=== PATIENT | female | born 1960 | race Caucasian/White ===

== ENCOUNTER 2018-12-31 20:59 | Emergency (ER) | payer SELFPAY ==
[~2018-12-31] VITALS: Ht 167.6 cm; Wt 85.3 kg
[2018-12-31] MEDS ORDERED: IV RINGERS SOLUTION,LACTATED 1,000 ML IV SCH (21:32)
--- NOTE | 2018-12-31 21:32 | ED.ADGEN ---
Past History Past Medical History: CAD, Diabetes, Hypertension Adult General Chief Complaint Chief Complaint " My sugars are up......".. " Not feeling well.." HPI HPI Patient is a 58 year old female who presents with above hx and complaints of hyperglycemia. Pt. states she not felt well the last three days. Patient denies any specific ill Contacts. Patient denies any travel. Patient denies any change in her medications. Patient does have history of diabetes and coronary artery disease. Pt. follows with Dr. Gordon. Pt. denies hx. of immunosuppression. Review of Systems Review of Systems Constitutional: Complans of chills [] Eyes: Denies change in visual acuity, redness, or eye pain [] HENT: Denies nasal congestion or sore throat [] Respiratory: Denies cough or shortness of breath [] Cardiovascular: No additional information not addressed in HPI [] GI: Denies abdominal pain, nausea, vomiting, bloody stools or diarrhea [] : Denies dysuria or hematuria [] Musculoskeletal: Complaints of generalized myalgia and arthralgia Integument: Denies rash or skin lesions [] Neurologic: Denies headache, focal weakness or sensory changes [] Endocrine: Complaints of polyuria or polydipsia [] All other systems were reviewed and found to be within normal limits, except as documented in this note. Family History Family History Non-contributory Current Medications Current Medications Current Medications Medications (Trade) Dose Ordered Sig/Aaliyah Start Time Stop Time Status Last Admin Dose Admin Aspirin (Children'S Aspirin) 324 mg 1X ONCE 12/31/18 22:30 12/31/18 22:31 DC 12/31/18 22:47 324 MG Ceftriaxone Sodium 2 gm/ Sodium Chloride 100 ml @ 200 mls/hr 1X ONCE 01/01/19 00:30 01/01/19 01:08 DC 01/01/19 00:30 200 MLS/HR Ceftriaxone Sodium (Rocephin) 2 gm STK-MED ONCE 01/01/19 00:33 01/01/19 00:34 DC Clonidine HCl (Catapres Tts-2) 1 patch 1X ONCE 12/31/18 21:45 12/31/18 21:46 DC Clonidine HCl (Catapres) 0.2 mg 1X ONCE 12/31/18 21:45 12/31/18 21:46 DC Enoxaparin Sodium (Lovenox 80mg Syringe) 80 mg 1X ONCE 12/31/18 22:30 12/31/18 22:31 DC 12/31/18 22:48 80 MG Furosemide (Lasix) 40 mg 1X ONCE 12/31/18 22:30 12/31/18 22:31 DC 12/31/18 22:47 40 MG Insulin Human Regular (HumuLIN R VIAL) 10 unit 1X ONCE 12/31/18 22:30 12/31/18 22:31 DC 12/31/18 22:45 10 UNIT Insulin Human Regular 150 unit/ Sodium Chloride 151.5 ml @ 0 mls/hr 1X ONCE 12/31/18 22:30 12/31/18 22:31 DC 12/31/18 22:45 7 MLS/HR Lactated Ringer's 1,000 ml @ 100 mls/hr Q10H 12/31/18 21:32 01/01/19 01:08 DC Morphine Sulfate (Morphine 10mg Syringe) 10 mg STK-MED ONCE 01/01/19 00:13 01/01/19 00:14 DC Sodium Bicarbonate (Sodium Bicarb Adult 8.4% Syr) 50 meq 1X ONCE 12/31/18 22:30 12/31/18 22:31 DC 12/31/18 22:47 50 MEQ Sodium Chloride 150 ml @ As Directed STK-MED ONCE 12/31/18 22:34 12/31/18 22:35 DC See Nursing for home meds Allergies Allergies Allergies Coded Allergies Type Severity Reaction Last Updated Verified No Known Drug Allergies 12/31/18 No Physical Exam Physical Exam Constitutional: Moderate distress, non-toxic appearance. [] HENT: Normocephalic, atraumatic, bilateral external ears normal, oropharynx m oist, no oral exudates, nose normal. [] Eyes: PERRLA, EOMI, conjunctiva normal, no discharge. [] Neck: Normal range of motion, no tenderness, supple, no stridor. [] Cardiovascular:Heart rate regular rhythm, no murmur []PMI to Lt. Lungs & Thorax: Bilateral breath sounds equal at apexes on auscultation [] Abdomen: Bowel sounds normal, soft, no tenderness, no masses, no pulsatile masses. [] Obese. Skin: Warm, dry, no erythema, no rash. [] Back: No tenderness, no CVA tenderness. [] Extremities: No tenderness, no cyanosis, no clubbing, ROM intact, ankle edema. [] Neurologic: Alert and oriented X 3, moves ext. on request, distal sensory,, no focal deficits noted. [] Psychologic: Affect anxious, mood normal. [] Current Patient Data Vital Signs Vital Signs Date Time Temp Pulse Resp B/P (MAP) Pulse Ox O2 Delivery O2 Flow Rate FiO2 12/31/18 22:55 69 18 108/66 (80) 94 Room Air 12/31/18 21:33 97.7 Lab Results Laboratory Tests Test 12/31/18 21:18 12/31/18 21:20 12/31/18 22:40 12/31/18 23:42 Glucose (Fingerstick) 439 mg/dL (70-99) H 412 mg/dL (70-99) H 265 mg/dL (70-99) H White Blood Count 16.8 x10^3/uL (4.0-11.0) H Red Blood Count 4.70 x10^6/uL (3.50-5.40) Hemoglobin 13.0 g/dL (12.0-15.5) Hematocrit 39.5 % (36.0-47.0) Mean Corpuscular Volume 84 fL (79-100) Mean Corpuscular Hemoglobin 28 pg (25-35) Mean Corpuscular Hemoglobin Concent 33 g/dL (31-37) Red Cell Distribution Width 14.8 % (11.5-14.5) H Platelet Count 218 x10^3/uL (140-400) Neutrophils (%) (Auto) 77 % (31-73) H Lymphocytes (%) (Auto) 13 % (24-48) L Monocytes (%) (Auto) 10 % (0-9) H Eosinophils (%) (Auto) 0 % (0-3) Basophils (%) (Auto) 0 % (0-3) Neutrophils # (Auto) 12.8 x10^3uL (1.8-7.7) H Lymphocytes # (Auto) 2.1 x10^3/uL (1.0-4.8) Monocytes # (Auto) 1.7 x10^3/uL (0.0-1.1) H Eosinophils # (Auto) 0.0 x10^3/uL (0.0-0.7) Basophils # (Auto) 0.1 x10^3/uL (0.0-0.2) Segmented Neutrophils % 74 % (35-66) H Lymphocytes % 19 % (24-48) L Monocytes % 7 % (0-10) Toxic Granulation Present Platelet Estimate Adequate (ADEQUATE) Anisocytosis Slight Prothrombin Time 11.7 SEC (9.4-11.4) H Prothrombin Time INR 1.2 (0.9-1.1) H PTT 26 SEC (23-33) D-Dimer (Iliana) 5.16 mg/L (0.00-0.50) H Sodium Level 126 mmol/L (136-145) L Potassium Level 4.0 mmol/L (3.5-5.1) Chloride Level 91 mmol/L (98-107) L Carbon Dioxide Level 24 mmol/L (21-32) Anion Gap 11 (6-14) Blood Urea Nitrogen 17 mg/dL (7-20) Creatinine 1.0 mg/dL (0.6-1.0) Estimated GFR (Cockcroft-Gault) 56.6 Glucose Level 425 mg/dL (70-99) H Calcium Level 8.7 mg/dL (8.5-10.1) Magnesium Level 1.9 mg/dL (1.8-2.4) Total Bilirubin 1.2 mg/dL (0.2-1.0) H Direct Bilirubin 0.6 mg/dL (0.0-0.2) H Aspartate Amino Transferase (AST) 90 U/L (15-37) H Alanine Aminotransferase (ALT) 85 U/L (14-59) H Alkaline Phosphatase 329 U/L (46-116) H Creatine Kinase 45 U/L (26-192) Troponin I Quantitative 0.983 ng/mL (0-0.055) H VD-Mby-L-Type Natriuretic Peptide 8317 pg/mL (0-124) H Total Protein 6.4 g/dL (6.4-8.2) Albumin 2.2 g/dL (3.4-5.0) L Lipase 93 U/L (73-393) Blood pH 7.37 (7.35-7.45) Blood Gas PCO2 34 mmHg (35-45) L Blood Gas PO2 61 mmHg (80-100) L Blood Gas HCO3 20 mmol/L (22-26) L Arterial Bld O2 Saturation (Calc) 91 % (92-99) L FiO2 21 % Test 01/01/19 00:21 01/01/19 01:00 Glucose (Fingerstick) 190 mg/dL (70-99) H Lactic Acid Level 6.9 mmol/L (0.4-2.0) *H EKG EKG My interpretation EKG shows low volumes. Sinus rate of 75. Right axis. Some nonspecific systemic T-wave changes in anterior septal leads. No findings of acute STEMI of contralateral changes[] Radiology/Procedures Radiology/Procedures My interpretation chest x-ray shows increased cephalization, linear atelectasis in bases.. cardiomegaly[] Course & Med Decision Making Course & Med Decision Making Pertinent Labs and Imaging studies reviewed. (See chart for details) Discussed presentation, testing and treatment plan with Dr. Chance and cardiology online content coordinator. Patient be transferred to [facility] for further evaluation and treatment [] Final Impression Final Impression 1. Hyperglycemia 439 2. Elevated Trop. 0.983 3. Leukocytosis 16.8 4. Elevated bilirubin 1.2, AST 90, ALT 85, alkaline phosphatase 329 5. CHF BNP 8317 6. Malnutrition albumin 2.2 7. SIRS Elevated Lactic Acid 6.9 8. Elevated D-dimer 5.16. Dragon Disclaimer Dragon Disclaimer This electronic medical record was generated, in whole or in part, using a voice recognition dictation system. Discharge Summary Visit Information Final Diagnosis Problems Medical Problems: (1) Hyperglycemia Status: Acute (2) Myocardial disorder Status: Acute (3) SIRS (systemic inflammatory response syndrome) Status: Acute Brief Hospital Course Allergies Allergies Coded Allergies Type Severity Reaction Last Updated Verified No Known Drug Allergies 12/31/18 No Vital Signs Vital Signs Date Time Temp Pulse Resp B/P (MAP) Pulse Ox O2 Delivery O2 Flow Rate FiO2 12/31/18 22:55 69 18 108/66 (80) 94 Room Air 12/31/18 21:33 97.7 Lab Results Laboratory Tests Test 12/31/18 21:18 12/31/18 21:20 12/31/18 22:40 12/31/18 23:42 Glucose (Fingerstick) 439 mg/dL (70-99) 412 mg/dL (70-99) 265 mg/dL (70-99) White Blood Count 16.8 x10^3/uL (4.0-11.0) Red Blood Count 4.70 x10^6/uL (3.50-5.40) Hemoglobin 13.0 g/dL (12.0-15.5) Hematocrit 39.5 % (36.0-47.0) Mean Corpuscular Volume 84 fL (79-100) Mean Corpuscular Hemoglobin 28 pg (25-35) Mean Corpuscular Hemoglobin Concent 33 g/dL (31-37) Red Cell Distribution Width 14.8 % (11.5-14.5) Platelet Count 218 x10^3/uL (140-400) Neutrophils (%) (Auto) 77 % (31-73) Lymphocytes (%) (Auto) 13 % (24-48) Monocytes (%) (Auto) 10 % (0-9) Eosinophils (%) (Auto) 0 % (0-3) Basophils (%) (Auto) 0 % (0-3) Neutrophils # (Auto) 12.8 x10^3uL (1.8-7.7) Lymphocytes # (Auto) 2.1 x10^3/uL (1.0-4.8) Monocytes # (Auto) 1.7 x10^3/uL (0.0-1.1) Eosinophils # (Auto) 0.0 x10^3/uL (0.0-0.7) Basophils # (Auto) 0.1 x10^3/uL (0.0-0.2) Segmented Neutrophils % 74 % (35-66) Lymphocytes % 19 % (24-48) Monocytes % 7 % (0-10) Toxic Granulation Present Platelet Estimate Adequate (ADEQUATE) Anisocytosis Slight Prothrombin Time 11.7 SEC (9.4-11.4) Prothromb Time International Ratio 1.2 (0.9-1.1) Activated Partial Thromboplast Time 26 SEC (23-33) D-Dimer (Iliana) 5.16 mg/L (0.00-0.50) Sodium Level 126 mmol/L (136-145) Potassium Level 4.0 mmol/L (3.5-5.1) Chloride Level 91 mmol/L (98-107) Carbon Dioxide Level 24 mmol/L (21-32) Anion Gap 11 (6-14) Blood Urea Nitrogen 17 mg/dL (7-20) Creatinine 1.0 mg/dL (0.6-1.0) Estimated GFR (Cockcroft-Gault) 56.6 Glucose Level 425 mg/dL (70-99) Calcium Level 8.7 mg/dL (8.5-10.1) Magnesium Level 1.9 mg/dL (1.8-2.4) Total Bilirubin 1.2 mg/dL (0.2-1.0) Direct Bilirubin 0.6 mg/dL (0.0-0.2) Aspartate Amino Transf (AST/SGOT) 90 U/L (15-37) Alanine Aminotransferase (ALT/SGPT) 85 U/L (14-59) Alkaline Phosphatase 329 U/L (46-116) Creatine Kinase 45 U/L (26-192) Troponin I Quantitative 0.983 ng/mL (0-0.055) KQ-Nbl-B-Type Natriuretic Peptide 8317 pg/mL (0-124) Total Protein 6.4 g/dL (6.4-8.2) Albumin 2.2 g/dL (3.4-5.0) Lipase 93 U/L (73-393) Blood Gas pH 7.37 (7.35-7.45) Blood Gas PCO2 34 mmHg (35-45) Blood Gas PO2 61 mmHg (80-100) Blood Gas HCO3 20 mmol/L (22-26) Arterial Bld O2 Saturation (Calc) 91 % (92-99) FiO2 21 % Test 01/01/19 00:21 01/01/19 01:00 Glucose (Fingerstick) 190 mg/dL (70-99) Lactic Acid Level 6.9 mmol/L (0.4-2.0) Brief Hospital Course Ms. Holloway is a 58 old female who presented with Elev. Trop. D.Dimer, Leukocytosis, and Lactic Acid. Transfer [facility]- Dr. Barboza Discharge Information Disposition/Orders: D/C to Another Facility Dischare Medications Current Medications Lactated Ringer's 1,000 ml @ 100 mls/hr Q10H IV ; Start 12/31/18 at 21:32; Stop 01/01/19 at 01:08; Status DC Clonidine HCl (Catapres Tts-2) 1 patch 1X ONCE TD ; Start 12/31/18 at 21:45; Stop 12/31/18 at 21:46; Status DC Clonidine HCl (Catapres) 0.2 mg 1X ONCE PO ; Start 12/31/18 at 21:45; Stop 12/31/18 at 21:46; Status DC Furosemide (Lasix) 40 mg 1X ONCE IVP Last administered on 12/31/18at 22:47; Admin Dose 40 MG; Start 12/31/18 at 22:30; Stop 12/31/18 at 22:31; Status DC Aspirin (Children'S Aspirin) 324 mg 1X ONCE PO Last administered on 12/31/18at 22:47; Admin Dose 324 MG; Start 12/31/18 at 22:30; Stop 12/31/18 at 22:31; Status DC Enoxaparin Sodium (Lovenox 80mg Syringe) 80 mg 1X ONCE SQ Last administered on 12/31/18at 22:48; Admin Dose 80 MG; Start 12/31/18 at 22:30; Stop 12/31/18 at 22:31; Status DC Sodium Bicarbonate (Sodium Bicarb Adult 8.4% Syr) 50 meq 1X ONCE IV Last administered on 12/31/18at 22:47; Admin Dose 50 MEQ; Start 12/31/18 at 22:30; Stop 12/31/18 at 22:31; Status DC Insulin Human Regular (HumuLIN R VIAL) 10 unit 1X ONCE IV Last administered on 12/31/18at 22:45; Admin Dose 10 UNIT; Start 12/31/18 at 22:30; Stop 12/31/18 at 22:31; Status DC Insulin Human Regular 150 unit/ Sodium Chloride 151.5 ml @ 0 mls/hr 1X ONCE IV Last administered on 12/31/18at 22:45; Admin Dose 7 MLS/HR; Start 12/31/18 at 22:30; Stop 12/31/18 at 22:31; Status DC Sodium Chloride 150 ml @ As Directed STK-MED ONCE .ROUTE ; Start 12/31/18 at 22:34; Stop 12/31/18 at 22:35; Status DC Morphine Sulfate (Morphine 10mg Syringe) 10 mg 1X ONCE SQ Last administered on 01/01/19at 00:15; Admin Dose 10 MG; Start 01/01/19 at 00:15; Stop 01/01/19 at 01:08; Status DC Morphine Sulfate (Morphine 10mg Syringe) 10 mg STK-MED ONCE .ROUTE ; Start 01/01/19 at 00:13; Stop 01/01/19 at 00:14; Status DC Ceftriaxone Sodium 2 gm/ Sodium Chloride 100 ml @ 200 mls/hr 1X ONCE IV Last administered on 01/01/19at 00:30; Admin Dose 200 MLS/HR; Start 01/01/19 at 00:30; Stop 01/01/19 at 01:08; Status DC Ceftriaxone Sodium (Rocephin) 2 gm STK-MED ONCE IV ; Start 01/01/19 at 00:33; Stop 01/01/19 at 00:34; Status DC Dragon Disclaimer This chart was dictated in whole or in part using Voice Recognition software in a busy, high-work load, and often noisy Emergency Department environment. It may contain unintended and wholly unrecognized errors or omissions. BELINDA TRIVEDI MD Dec 31, 2018 21:32
[2018-12-31] MEDS ORDERED: cloNIDine TTS-2 1 PATCH PATCH TD ONE (21:45)
[2018-12-31] MEDS ORDERED: cloNIDine HCL 0.1 MG TABLET PO ONE (21:45)
[2018-12-31 21:46] LABS: BASO # 0.1 x10^3/uL (0.0-0.2); BASO % 0 % (0-3); EOS % 0 % (0-3); HEMATOCRIT 39.5 % (36.0-47.0); LYMPH # 2.1 x10^3/uL (1.0-4.8); LYMPH % 13 % (24-48); MEAN CORPUSCULAR HEMOGLOBIN 28 pg (25-35); MEAN CORPUSCULAR HGB CONC 33 g/dL (31-37); MEAN CORPUSCULAR VOLUME 84 fL (79-100); MONO # 1.7 x10^3/uL (0.0-1.1); MONO % 10 % (0-9); NEUT # 12.8 x10^3uL (1.8-7.7); NEUT % 77 % (31-73); PLATELET COUNT 218 x10^3/uL (140-400); RED CELL DISTRIBUTION WIDTH 14.8 % (11.5-14.5); WHITE BLOOD COUNT 16.8 x10^3/uL (4.0-11.0)
[2018-12-31 22:00] LABS: ALBUMIN 2.2 g/dL (3.4-5.0); CALCIUM 8.7 mg/dL (8.5-10.1); DIRECT BILIRUBIN 0.6 mg/dL (0.0-0.2); GFR 56.6; MAGNESIUM 1.9 mg/dL (1.8-2.4); TOTAL BILIRUBIN 1.2 mg/dL (0.2-1.0); TOTAL PROTEIN 6.4 g/dL (6.4-8.2)
[2018-12-31] MEDS ORDERED: INSULIN REGULAR VIAL 150 UNIT in 0.9 % SODIUM CHLORIDE 150ML 150 ML IV ONE (22:30)
[2018-12-31] MEDS ORDERED: ENOXAPARIN ** NOTE DOSE ** SYRINGE SQ ONE (22:30)
[2018-12-31] MEDS ORDERED: ASPIRIN 81 MG TAB.CHEW PO ONE (22:30)
[2018-12-31] MEDS ORDERED: FUROSEMIDE 40 MG/4 ML VIAL IVP ONE (22:30)
[2018-12-31] MEDS ORDERED: SODIUM BICARB ADULT 8.4% 50 MEQ/50 ML DISP.SYRIN. IV ONE (22:30)
[2018-12-31] MEDS ORDERED: INSULIN REGULAR 100 UNIT/ML 3ML VIAL. IV ONE (22:30)
[2018-12-31 22:31] LABS: % LYMPHS 19 % (24-48); % MONOS 7 % (0-10); % SEGS 74 % (35-66)
[2018-12-31 22:32] LABS: PLT ESTIMATE ADEQUATE (ADEQUATE)
[2018-12-31] MEDS ORDERED: 0.9 % SODIUM CHLORIDE 150ML 150 ML ONE (22:34)
[2018-12-31 22:41] LABS: TOXIC GRANULATION PRESENT
[2018-12-31 22:42] LABS: ANISOCYTOSIS SLIGHT
[2018-12-31 22:55] VITALS: BP 108/66
[2018-12-31 23:02] LABS: BGAS PH 7.37 (7.35-7.45)
[2019-01-01] MEDS ORDERED: MORPHINE SULFATE 10 MG/ML SYRINGE. ONE (00:13)
[2019-01-01] MEDS ORDERED: MORPHINE SULFATE 10 MG/ML SYRINGE. SQ ONE (00:15)
[2019-01-01 10:37] LABS: THYROID STIM HORMONE (TSH) 1.042 uIU/mL (0.358-3.740)
--- NOTE | 2019-01-01 11:07 | RAD ---
EXAM: CHEST 2 VIEWS. HISTORY: Hyperglycemia. COMPARISON: None. FINDINGS: Frontal and lateral views of the chest are obtained. Trace pleural effusions are suspected. Linear opacities in both bases are consistent with atelectasis. There are no confluent infiltrates. A calcification in the upper abdomen on the lateral projection suggests a gallstone measuring 2.2 cm. There is no pneumothorax. The heart is not enlarged. IMPRESSION: 1. Trace bilateral pleural effusions and bibasilar atelectasis. 2. Suspect a 2.2 cm gallstone. Electronically signed by: Holley Avery MD (01/01/2019 11:04 AM) [facility]
--- NOTE | 2019-01-03 06:51 | EKG ---
[address] [address] Test Date: 2018-12-31 Test Time: 21:52:17 Pat Name: BRENDAN PEÑA Department: Room: Gender: F Inspector Boiler: : [id number] Requested By: BELINDA TRIVEDI Order Number: [id number] Reading MD: Measurements Intervals [place] Rate: 75 P: 52 MI: 146 QRS: 103 QRSD: 92 T: 102 QT: 450 QTc: 506 Interpretive Statements SINUS RHYTHM RIGHTWARD AXIS LOW LIMB LEAD VOLTAGE T ABNORMALITY IN ANTEROSEPTAL LEADS PROLONGED QT ABNORMAL ECG RI6.01 No previous ECG available for comparison
== END 2019-01-01 01:08 | disposition short-term general hospital (02) ==
LOC: ER 20:59
DX: E11.65 Type 2 diabetes mellitus with hyperglycemia (principal); R74.0 Nonspecific elevation of levels of transaminase and lactic acid dehydrogenase [LDH]; R65.10 Systemic inflammatory response syndrome (SIRS) of non-infectious origin without acute organ dysfunction; D72.829 Elevated white blood cell count, unspecified; R79.1 Abnormal coagulation profile; E46 Unspecified protein-calorie malnutrition; Z68.30 Body mass index [BMI] 30.0-30.9, adult; I11.0 Hypertensive heart disease with heart failure; I50.9 Heart failure, unspecified; R79.89 Other specified abnormal findings of blood chemistry; E80.7 Disorder of bilirubin metabolism, unspecified; R74.8 Abnormal levels of other serum enzymes; Z79.82 Long term (current) use of aspirin; I25.10 Atherosclerotic heart disease of native coronary artery without angina pectoris
CPT/HCPCS: 36415; 36600; 71046; 80048; 80061; 80076; 82550; 82803; 82947; 83605; 83690; 83735; 83880; 84443; 84484; 85007; 85025; 85379; 85610; 85730; 87040; 87205; 93005; 96365; 96366; 96367; 96372; 96375; 96376; 99285; J0696; J1650; J1815; J1940; J2270; 96368

== ENCOUNTER → 2020-08-07 | Outpatient (CLI) | payer OTHER ==
--- NOTE | 2020-08-07 16:10 | RAD ---
Chest, PA and Lateral: Technique: PA and lateral views of the chest were obtained. History: Pneumonia, acute bronchitis. Comparison: 12/31/2018. Findings: The heart and pulmonary vasculature appear within normal limits. Minimal left lung base atelectasis. . The pleural margins are clear. Impression: Minimal left lung base atelectasis.. Electronically signed by: Arnoldo Elliott MD (08/07/2020 4:08 PM) [id number]
== END ==
LOC: LAB 11:18
PROVIDERS: ATTEND Internal Medicine
DX: J20.9 Acute bronchitis, unspecified (principal); Z87.01 Personal history of pneumonia (recurrent)
CPT/HCPCS: 36415; 71046

== ENCOUNTER → 2021-02-15 | Outpatient (CLI) | payer OTHER ==
--- NOTE | 2021-02-15 09:13 | RAD ---
EXAM: RENAL ULTRASOUND CLINICAL HISTORY: Reason: Chronic Kidney Disease; Abnormal Renal Labs COMPARISON: CT abdomen and pelvis 08/15/2020 TECHNIQUE: Ultrasound examination of the bilateral kidneys and urinary bladder was performed. FINDINGS: The right kidney measures 10.6 x 3.9 x 5.0 cm in bipolar length. The renal cortex is normal in thickn ess. Renal echogenicity is normal. There is no evidence for hydronephrosis, shadowing renal calculus or focal abnormality . The left kidney measures 10.1 x 2.8 x 4.7 cm in bipolar length. The renal cortex is normal in thickne ss. Renal echogenicity is normal. There is no evidence for hydronephrosis, shadowing renal calculus o r focal abnormality. This lobulated appearance to the left kidney obscuring evaluation for masslike l esions. Images of the partially filled urinary bladder are unremarkable. IMPRESSION: 1. The left kidney is smaller in size in the right. The left kidney has a lobulated appearance withou t a discrete mass. Findings similar to comparison CT. 2. No hydronephrosis or nephrolithiasis. Electronically signed by: Wade Bueno (02/15/2021 9:11 AM) [id number]
== END ==
LOC: US 07:55
PROVIDERS: ATTEND Internal Medicine
DX: R94.4 Abnormal results of kidney function studies (principal); N18.9 Chronic kidney disease, unspecified; Q63.1 Lobulated, fused and horseshoe kidney
CPT/HCPCS: 76770